=== PATIENT | female | born 1955 | race Hispanic/Latino ===

== ENCOUNTER 2022-09-30 21:45 | Emergency (ER) | payer OTHER ==
[~2022-09-30] VITALS: Ht 154.9 cm; Wt 91.2 kg
[2022-09-30] MEDS ORDERED: NAPR-1180 PO (22:26)
[2022-09-30] MEDS ORDERED: HYDR-4064 PO (22:26)
[2022-09-30] MEDS ORDERED: HYDROCODONE/ACETAMINOPHEN 7.5/325 MG TAB PO ONE (22:30)
[2022-09-30 23:29] VITALS: BP 126/62
== END 2022-09-30 23:32 | disposition home or self-care (01) ==
LOC: EDH 21:45
DX: S86.111A Strain of other muscle(s) and tendon(s) of posterior muscle group at lower leg level, right leg, initial encounter (principal); E11.9 Type 2 diabetes mellitus without complications; E78.00 Pure hypercholesterolemia, unspecified; I10 Essential (primary) hypertension; W01.10XA Fall on same level from slipping, tripping and stumbling with subsequent striking against unspecified object, initial encounter; Y93.89 Activity, other specified; Y92.89 Other specified places as the place of occurrence of the external cause; Y99.8 Other external cause status

== ENCOUNTER → 2022-09-30 | Outpatient (CLI) | payer OTHER ==
[~2022-09-30] MED LIST: HYDR-4064 PO; NAPR-1180 PO
== END | disposition home or self-care (01) ==
LOC: RAH 12:59
PROVIDERS: ATTEND Internal Medicine
DX: R22.2 Localized swelling, mass and lump, trunk (principal)
CPT/HCPCS: 76604

== ENCOUNTER 2022-12-09 14:09 | Day surgery (SDC) | payer OTHER ==
[2022-12-05 16:05] LABS: HEMATOCRIT 38.7 % (36-48); MEAN CORPUSCULAR HEMOGLOBIN 28.8 pg (27.0-33.0); MEAN CORPUSCULAR HGB CONC 31.8 g/dL (32.0-36.0); MEAN CORPUSCULAR VOLUME 90.6 fL (79-99); RED BLOOD CELL COUNT(AUTO) 4.27 MIL/uL (4.00-5.50); RED CELL DISTRIBUTION WIDTH 15.4 % (11.0-15.5); WHITE BLOOD COUNT (AUTO) 6.7 K/uL (4.8-10.8)
[2022-12-05 16:16] LABS: CREATININE 3.3 mg/dL (0.5-1.5); INR 0.93 (0.85-1.15); POTASSIUM 4.3 mmol/L (3.5-5.1); PROTHROMBIN TIME 9.9 SEC (9.6-11.6)
[2022-12-05 16:17] LABS: PARTIAL THROMBOPLASTIN TIME 31.6 SEC (26.3-35.5)
[2022-12-05 17:35] VITALS: BP 160/68
[~2022-12-09] VITALS: Ht 154.9 cm; Wt 90.4 kg
[2022-12-09] VITALS (14 sets, daily range): BP systolic 147–160; BP diastolic 61–74
[2022-12-09] MEDS ORDERED: 0.9% NACL 500ML IV.SOLN 0 ML IV ONE (14:42)
[2022-12-09] MEDS ORDERED: CEFAZOLIN SODIUM 2 GM VIAL ONE (14:42)
[2022-12-09 14:59] LABS: CREATININE 5.2 mg/dL (0.5-1.5); POTASSIUM 4.9 mmol/L (3.5-5.1)
[2022-12-09] MEDS ORDERED: AMLO-258 PO (15:15)
[2022-12-09] MEDS ORDERED: LOSA100T59 PO (15:15)
[2022-12-09] MEDS ORDERED: INSU10VI3 SQ (15:15)
[2022-12-09] MEDS ORDERED: HYDR-4153 PO (15:15)
[2022-12-09] MEDS ORDERED: INSU100I35 SQ (15:15)
[2022-12-09] MEDS ORDERED: CARV25TA PO (15:15)
[2022-12-09] MEDS ORDERED: LIDOCAINE PF 100MG/5ML (2%) SYRINGE 5ML ONE (15:30)
[2022-12-09] MEDS ORDERED: MIDAZOLAM HCL 1 MG/ML 2ML VIAL ONE (15:30)
[2022-12-09] MEDS ORDERED: PROPOFOL 10 MG/ML 20ML VIAL IV ONE (15:30)
[2022-12-09] MEDS ORDERED: ROCURONIUM 10MG/1ML SYR 10 MG/ML ML ONE (15:31)
[2022-12-09] MEDS ORDERED: FENTANYL CITRATE PF 50 MCG/1 ML 2ML VIAL ONE (15:31)
[2022-12-09] MEDS ORDERED: PHENYLEPHRINE HCL 10 MG/ML 1ML VIAL IV ONE (15:32)
[2022-12-09] MEDS ORDERED: CEFAZOLIN SODIUM 1 GM VIAL ONE (15:55)
[2022-12-09] MEDS ORDERED: BUPIVACAINE/PF 0.25% 30ML VIAL IJ ONE ×2 (15:56→16:30)
[2022-12-09] MEDS ORDERED: CEFAZOLIN SODIUM 2 GM VIAL IVPB ONE (16:33)
[2022-12-09] MEDS ORDERED: CEFAZOLIN SODIUM 1 GM VIAL IVPB ONE (16:34)
[2022-12-09] MEDS ORDERED: DEXAMETHASONE SOD PHOSPHATE 4 MG/ML 1ML VIAL ONE (16:41)
[2022-12-09] MEDS ORDERED: ONDANSETRON 4MG INJ ONE (16:41)
[2022-12-09] MEDS ORDERED: GLYCOPYRROLATE 1 MG/5 ML SYRINGE ONE (17:57)
[2022-12-09] MEDS ORDERED: NEOSTIGMINE 5MG/5ML SYR IV ONE (17:57)
[2022-12-09] MEDS ORDERED: SUGAMMADEX SODIUM 200 MG/2 ML VIAL IV ONE (18:17)
== END 2022-12-09 19:45 | disposition home or self-care (01) ==
LOC: DAH 14:09
PROVIDERS: ATTEND Thoracic Surgery (Cardiothoracic Vascular Surgery)
DX: E11.22 Type 2 diabetes mellitus with diabetic chronic kidney disease (principal); Z20.822 Contact with and (suspected) exposure to COVID-19; I13.11 Hypertensive heart and chronic kidney disease without heart failure, with stage 5 chronic kidney disease, or end stage renal disease; N18.6 End stage renal disease; J45.909 Unspecified asthma, uncomplicated; I25.10 Atherosclerotic heart disease of native coronary artery without angina pectoris; E66.01 Morbid (severe) obesity due to excess calories; I25.2 Old myocardial infarction; F32.A Depression, unspecified; E78.5 Hyperlipidemia, unspecified; F41.9 Anxiety disorder, unspecified; Z98.891 History of uterine scar from previous surgery; Z99.2 Dependence on renal dialysis; Z68.37 Body mass index [BMI] 37.0-37.9, adult; Z79.01 Long term (current) use of anticoagulants
CPT/HCPCS: 80048 ×2; 85027; 85610; 85730; 86850 ×2; 86900 ×2; 86901 ×2; 87426; 36415 ×2; 71045; 93005; 36821; 82948; A6260; J1100; A4663; A6207; J7030; J3010; J0690 ×4; J3490 ×3; J2710; J2001; J2250; J2704; J2405; J1644; J2370; G0168; A4649 ×3; C1713 ×2; A4930; A4215; A4223; A4222; A4221; J7040

== ENCOUNTER → 2023-01-06 | Outpatient (CLI) | payer OTHER ==
[~2023-01-06] MED LIST changes: +AMLO-258 PO; +CARV25TA PO; -HYDR-4064 PO; +HYDR-4153 PO; +INSU100I35 SQ; +INSU10VI3 SQ; +LOSA100T59 PO; -NAPR-1180 PO
== END | disposition home or self-care (01) ==
LOC: RAH 12:45
PROVIDERS: ATTEND Internal Medicine
DX: R22.32 Localized swelling, mass and lump, left upper limb (principal); Z95.828 Presence of other vascular implants and grafts; M79.81 Nontraumatic hematoma of soft tissue
CPT/HCPCS: 93971

== ENCOUNTER → 2023-05-14 | Outpatient (CLI) | payer OTHER ==
[~2023-05-14] MED LIST changes: +IOHEXOL 350 MG/ML 100ML INFUS..BTL IV ONE
== END | disposition home or self-care (01) ==
LOC: RAH 07:55
PROVIDERS: ATTEND Student in an Organized Health Care Education/Training Program
DX: R07.9 Chest pain, unspecified (principal)
CPT/HCPCS: 75574; Q9967

== ENCOUNTER 2023-10-20 05:44 | Day surgery (SDC) | payer OTHER ==
[2023-10-20] VITALS (16 sets, daily range): BP systolic 155–187; BP diastolic 61–100; PULSE 57–67; RESP 11–18
[~2023-10-20] VITALS: Ht 154.9 cm; Wt 87.5 kg
[~2023-10-20 05:44] MED LIST changes: -HYDR-4153 PO; +HYDR25TA67 PO; -IOHEXOL 350 MG/ML 100ML INFUS..BTL IV ONE
[2023-10-20] MEDS ORDERED: FURO40TA5 PO (06:43)
[2023-10-20] MEDS ORDERED: MONT-39 PO (06:43)
[2023-10-20] MEDS ORDERED: SERT-439 PO (06:43)
[2023-10-20] MEDS ORDERED: ATOR40TA69 PO (06:47)
[2023-10-20] MEDS ORDERED: FAMO40TA7 PO (06:47)
[2023-10-20] MEDS: 0.9%NACL 1000ML 1,000 ML IV ONE (06:49)
[2023-10-20] MEDS ORDERED: PROPOFOL 10 MG/ML 20ML VIAL IV ONE (08:23)
[2023-10-20] MEDS: HYDRALAZINE 20MG/ML VIAL ONE (09:39)
== END 2023-10-20 10:59 | disposition home or self-care (01) ==
LOC: ENDO 05:44 → DAH 05:44 → ENDO 10:59
PROVIDERS: ATTEND Internal Medicine Gastroenterology
DX: K92.1 Melena (principal); K62.1 Rectal polyp; D12.3 Benign neoplasm of transverse colon; D12.9 Benign neoplasm of anus and anal canal; K57.30 Diverticulosis of large intestine without perforation or abscess without bleeding; I12.0 Hypertensive chronic kidney disease with stage 5 chronic kidney disease or end stage renal disease; N18.6 End stage renal disease; E66.01 Morbid (severe) obesity due to excess calories; K76.0 Fatty (change of) liver, not elsewhere classified; E78.5 Hyperlipidemia, unspecified; Z98.890 Other specified postprocedural states; Z79.899 Other long term (current) drug therapy; Z68.38 Body mass index [BMI] 38.0-38.9, adult
CPT/HCPCS: 82948 ×2; 45380; 45385; J7030 ×2; J0360; J2704; A4620; A4215 ×2; A4223; A7002; A4222; A4221; A4663; A4606; J3490